=== PATIENT | male | born 1965 | race Two or more races ===

== ENCOUNTER 2021-02-01 00:36 | Day surgery (SDC) | payer OTHER, SELFPAY ==
[2021-02-01] VITALS (9 sets, daily range): BP systolic 111–153; BP diastolic 68–90; PULSE 86–97; RESP 16–18; TEMP 36.6; O2SAT 98–100; BMI 32.9
--- NOTE | ~2021-02-01 | CT_ITS ---
EXAMINATION: CT CHEST WITHOUT CONTRAST CLINICAL INFORMATION: Rule out foreign body in esophagus COMPARISON: None TECHNIQUE: Multidetector volumetric CT imaging of the chest was done. Axial MIP volume rendering provided. Sagittal and coronal reformatted images were obtained. This CT examination was performed using dose optimization techniques as appropriate, variously including the following: *Automated exposure control *Adjustment of mA and/or kV according to patient size (this includes techniques or standardized protocols for targeted exams where dose is matched to indication/reason for exam; i.e. extremities or head) *Use of iterative reconstruction technique DLP: 336 mGy-cm FINDINGS: LUNGS: No regions of consolidation. There is a 2 mm nodule in the left upper lobe on image [id number] which is suspected to be calcified. MEDIASTINUM: There is a somewhat disc shaped calcified foreign body in the esophagus at the level of T2 measuring approximately 3 cm in length which is oriented transversely. No pneumomediastinum is seen. There is suggestion of small hypodense thyroid nodules versus cysts. There are subcentimeter mediastinal lymph nodes within the range of normal variation. Cardiac size is within normal limits; no pericardial effusion. PLEURA: There is no pleural effusion. No pleural mass or thickening. AXILLA: No lymphadenopathy. UPPER ABDOMEN: Unremarkable. OSSEOUS STRUCTURES: Scattered degenerative endplate changes are noted in the spine. CT/CT chest wo con IMPRESSION: Foreign body within the esophagus at the level of T2 measuring approximately 3 cm in length. Appearance is suggestive of an ingested bone fragment. This critical result was discussed with Dr. Vee on 02/01/2021 4:40 AM, and it was ascertained that the content and urgency of the report was understood at the time of direct communication.
--- NOTE | 2021-02-01 01:10 | ED.GENADULT ---
HPI - General Adult General Chief complaint: General Medical Stated complaint: feels like food stuck in throat Time Seen by Provider: 02/01/21 00:48 Source: patient Mode of arrival: ambulatory Limitations: no limitations History of Present Illness HPI narrative: Patient comes emergency room complaining of a foreign body sensation in his throat. Patient states he ate chicken at 20:30. Patient did not choke, patient states that he is able to handle secretions, able to drink fluids but she only has pressure. Patient tried making himself vomit, the pressure did not relief. Patient denies diarrhea. No abdominal pain. Related Data Home Medications Medication Instructions Recorded Confirmed No Known Home Meds 02/01/21 02/01/21 Allergies Allergy/AdvReac Type Severity Reaction Status Date / Time No Known Allergies Allergy Verified 02/01/21 00:44 Review of Systems Review of Systems: Constitutional : No Weight loss, No Fever, No Chills, No Night Sweats, No Fatigue, No Malaise ENT/Mouth : No Hearing loss, No Ear Pain, No Nasal Congestion, No Sinus Pain, No Hoarseness, No sore throat, No Rhinorrhea, No Swallowing Difficulty Eyes: No Eye Pain, No Swelling, No Redness, No Foreign Body, No Discharge, No Vision Changes Cardiovascular : No Chest Pain, No SOB, No Dyspnea on Exertion, No Orthopnea, No Edema, No Palpitations Respiratory : No Cough, No Sputum, No Wheezing, No Smoke Exposure, No Dyspnea Gastrointestinal : No Nausea, 1 episode of self-induced Vomiting, No Diarrhea, No Constipation, No abdominal Pain, No Hematochezia, No Melena, foreign body sensation in the esophagus Genitourinary : no irregular bleeding, No Dysuria, No Urinary Frequency, No Hematuria, No Urinary Incontinence, No Urgency, No Flank Pain, No Urinary Flow Changes, No Hesitancy Musculoskeletal : No joint pain, No Myalgias, No Joint Swelling Skin : No Skin Lesions, No rash Neuro : No Weakness, No Numbness, No Paresthesias, No Loss of Consciousness, No Dizziness, No Headache Psych : No Anxiety/Panic, No Depression, No SI/HI/AH/VH, No Social Issues, Heme/Lymph: No Bruising, No Bleeding,No Lymphadenopathy Endocrine : No Polyuria, No Polydipsia, No Temperature Intolerance [facility] Social History Social History Patient Tobacco Use Status: Never used Tobacco Advance Directives: No Advance Directives Information Provided: No Physical Exam Vital Signs: Vital Signs: Last Vital Signs Temp 97.8 F 02/01/21 00:45 Pulse 97 02/01/21 04:00 Resp 16 02/01/21 06:00 BP 151/82 H 02/01/21 04:00 Pulse Ox 100 02/01/21 04:00 Body Mass Index 32.9 Appearance: Alert. Oriented X3. No acute distress. Eyes: Pupils equal, round and reactive to light. ENT: Pharynx normal. Neck: Normal inspection. Neck supple. No lymph nodes noted. No crepitus CVS: Normal heart rate and rhythm. Pulses normal. Normal S1 and S2 Respiratory: No respiratory distress. Breath sounds normal. No Wheezing. No rales Abdomen: Soft and nontender. No rigidity. No distention. good BS x4 Skin: Skin warm and dry. Normal skin color. Normal skin turgor. Extremities: No lower extremity edema. No Lacerations. No Rash Neuro: Oriented X 3. No motor deficit. No sensory deficit. Moving all extermities. No slurred speech. Course Course Course Narrative: CT scan shows a bone fragment in lodged in the esophagus at T2. I discussed the patient with Dr. Torres. Patient states that he feels well, no pain, patient will be scheduled for upper endoscopy this morning. Patient was taking to the OR at 07:00. It is likely that after the procedure patient will be returning to the ED for discharge. Sign out given to Dr. Walsh. Medical Decision Making Lab Data Result diagrams: 02/01/21 05:05 02/01/21 06:10 Labs: Lab Results 02/01/21 02/01/21 02/01/21 Range/Units 05:05 05:13 06:10 WBC 13.7 H (4.8-10.8) X10*3/uL RBC 5.49 (4.60-5.80) X10*6/uL Hgb 15.5 (14.0-18.0) g/dl Hct 47.9 (42-52) % MCV 87.2 (80-98) fL MCH 28.2 (27.0-33.0) pg MCHC 32.4 (31.0-36.0) g/dl RDW 12.7 (11.0-16.0) % Plt Count 371 (160-400) X10*3/uL MPV 9.7 (9.4-12.4) fL Immature Gran % (Auto) 0.3 (0.0-0.4) % Neut % (Auto) 78.8 H (45-73) % Lymph % (Auto) 12.9 L (20-40) % [place] % (Auto) 6.1 (2-11) % Eos % (Auto) 1.3 (0-4) % Baso % (Auto) 0.6 (0-2) % Lymph # (Auto) 1.8 (1.2-4.9) X10*3/uL [place] # (Auto) 0.8 (0.1-1.2) X10*3/uL Eos # (Auto) 0.2 (0.0-0.4) X10*3/uL Baso # (Auto) 0.1 (0.0-0.2) X10*3/uL Abs Immat Gran (auto) 0.04 H (0.00-0.03) X10*3/uL Absolute Neuts (auto) 10.8 H (2.0-8.3) X10*3/uL Absolute Nucleated RBC 0.000 (0.0-0.012) X10*3/uL Nucleated RBC % (auto) 0.0 (0.0-0.2) /100WBC PT 12.4 (9.9-13.0) SEC INR 1.1 (0.9-1.1) Sodium 141 (135-145) mmol/L Potassium 4.1 (3.3-5.1) mmol/L Chloride 107 (96-108) mmol/L Carbon Dioxide 27 (22-29) mmol/L Anion Gap 11 L (12-20) BUN 10 (9-16) mg/dL Creatinine 0.79 (0.5-1.4) mg/dL Estim Creat Clear Calc 109.8 Estimated GFR > 60 Random Glucose 105 (60-115) mg/dL Calcium 9.4 (8.4-10.2) mg/dL Total Bilirubin 0.4 (0.0-1.0) mg/dL Direct Bilirubin 0.2 (0.0-0.5) mg/dL AST 23 (5-37) U/L ALT 32 (0-40) U/L Alkaline Phosphatase 99 (39-117) U/L Total Protein 7.7 (6.5-8.0) g/dL Albumin 4.4 (3.5-5.0) g/dL COVID-19 ([facility]) (Negative) COVID-19 Clin Com 02/01/21 Range/Units 06:40 WBC (4.8-10.8) X10*3/uL RBC (4.60-5.80) X10*6/uL Hgb (14.0-18.0) g/dl Hct (42-52) % MCV (80-98) fL MCH (27.0-33.0) pg MCHC (31.0-36.0) g/dl RDW (11.0-16.0) % Plt Count (160-400) X10*3/uL MPV (9.4-12.4) fL Immature Gran % (Auto) (0.0-0.4) % Neut % (Auto) (45-73) % Lymph % (Auto) (20-40) % [place] % (Auto) (2-11) % Eos % (Auto) (0-4) % Baso % (Auto) (0-2) % Lymph # (Auto) (1.2-4.9) X10*3/uL [place] # (Auto) (0.1-1.2) X10*3/uL Eos # (Auto) (0.0-0.4) X10*3/uL Baso # (Auto) (0.0-0.2) X10*3/uL Abs Immat Gran (auto) (0.00-0.03) X10*3/uL Absolute Neuts (auto) (2.0-8.3) X10*3/uL Absolute Nucleated RBC (0.0-0.012) X10*3/uL Nucleated RBC % (auto) (0.0-0.2) /100WBC PT (9.9-13.0) SEC INR (0.9-1.1) Sodium (135-145) mmol/L Potassium (3.3-5.1) mmol/L Chloride (96-108) mmol/L Carbon Dioxide (22-29) mmol/L Anion Gap (12-20) BUN (9-16) mg/dL Creatinine (0.5-1.4) mg/dL Estim Creat Clear Calc Estimated GFR Random Glucose (60-115) mg/dL Calcium (8.4-10.2) mg/dL Total Bilirubin (0.0-1.0) mg/dL Direct Bilirubin (0.0-0.5) mg/dL AST (5-37) U/L ALT (0-40) U/L Alkaline Phosphatase (39-117) U/L Total Protein (6.5-8.0) g/dL Albumin (3.5-5.0) g/dL COVID-19 ([facility]) Negative (Negative) COVID-19 Clin Com See Note Discharge Plan Discharge Clinical Impression: Esophageal foreign body Qualifiers: Encounter type: initial encounter Qualified Code(s): T18.108A - Unspecified foreign body in esophagus causing other injury, initial encounter Patient Disposition: Home, Self-Care Instructions: Esophageal Foreign Body (ED) Additional Instructions: Please follow-up with your primary care physician tomorrow. If you have any worsening or new symptoms, please return to the emergency room or call 911 Prescriptions: No Action No Known Home Meds RF: 0
--- NOTE | 2021-02-01 04:04 | PC.NURSE ---
NO CHANGE IN PHYSICAL ASSESSMENT, PT CONTINUES TO MANAGE OWN SECRETIONS, SPEAK FULL SENTENCES, REPORTING CONTINUED PAIN UPON SWALLOWING. CT ORDERED, PT AWARE OF PLAN OF CARE.
--- NOTE | 2021-02-01 04:55 | ECG_ITS ---
Test Reason : ENDOSCOPY Blood Pressure : / mmHG Vent. Rate : 095 BPM Atrial Rate : 095 BPM P-R Int : 160 ms QRS Dur : 096 ms QT Int : 344 ms P-R-T Axes : -05 -29 017 degrees QTc Int : 432 ms Normal sinus rhythm Normal ECG No previous ECGs available Referred By: Anna Vee Electronically Signed By:RYAN GUNDERSON MD
--- NOTE | 2021-02-01 05:08 | PC.NURSE ---
IV ACCESS OBTAINED, LABS DRAWN AND SENT FOR PROCESSING. NO CHANGE IN PHYSICAL ASSESSMENT. PT NPO FOR ENDOSCOPY PROCEDURE IN AM TO REMOVE ?CHICKEN BONE FROM ESOPHAGUS. AWARE OF PLAN OF CARE, WILL CONTINUE TO MONITOR.
[2021-02-01 05:20] LABS: MANUAL DIFF FLAG NO
[2021-02-01 05:21] LABS: Basophils Absolute Auto 0.1 X10*3/uL (0.0-0.2); Basophils Percent Auto 0.6 % (0-2); Eosinophils Absolute Auto 0.2 X10*3/uL (0.0-0.4); Eosinophils Percent Auto 1.3 % (0-4); Hematocrit 47.9 % (42-52); Hemoglobin 15.5 g/dl (14.0-18.0); Imm Gran Abs Auto 0.04 X10*3/uL (0.00-0.03); Imm Gran Pct Auto 0.3 % (0.0-0.4); Lymphocytes Absolute Auto 1.8 X10*3/uL (1.2-4.9); Lymphocytes Percent Auto 12.9 % (20-40); Mean Corpuscular HGB Conc 32.4 g/dl (31.0-36.0); Mean Corpuscular Hemoglobin 28.2 pg (27.0-33.0); Mean Corpuscular Volume 87.2 fL (80-98); Mean Platelet Volume 9.7 fL (9.4-12.4); Monocytes Absolute Auto 0.8 X10*3/uL (0.1-1.2); Monocytes Percent Auto 6.1 % (2-11); Neutrophils Absolute Auto 10.8 X10*3/uL (2.0-8.3); Neutrophils Percent Auto 78.8 % (45-73); Platelet Count 371 X10*3/uL (160-400); Red Blood Count 5.49 X10*6/uL (4.60-5.80); Red Cell Distribution Width 12.7 % (11.0-16.0); White Blood Count 13.7 X10*3/uL (4.8-10.8)
[2021-02-01 05:27] LABS: INTERNATIONAL NORM RATIO 1.1 (0.9-1.1); Prothrombin Time 12.4 SEC (9.9-13.0)
[2021-02-01 06:40] LABS: Alanine Aminotransferase 32 U/L (0-40); Albumin Level 4.4 g/dL (3.5-5.0); Alkaline Phosphatase 99 U/L (39-117); Anion Gap 11 (12-20); Aspartate Amino Transferase 23 U/L (5-37); Bilirubin Direct 0.2 mg/dL (0.0-0.5); Bilirubin Total 0.4 mg/dL (0.0-1.0); Blood Urea Nitrogen 10 mg/dL (9-16); Calcium 9.4 mg/dL (8.4-10.2); Carbon Dioxide 27 mmol/L (22-29); Chloride 107 mmol/L (96-108); Creatinine Clr Calc Pharmacy 109.8; Estimated Glomerular Filt Rate > 60; Glucose Random 105 mg/dL (60-115); Potassium 4.1 mmol/L (3.3-5.1); Sodium 141 mmol/L (135-145); Total Protein 7.7 g/dL (6.5-8.0)
--- NOTE | 2021-02-01 06:43 | HO.ANESPROP2 ---
[facility] Social History Social History Patient Tobacco Use Status: Never used Tobacco Advance Directives: No Advance Directives Information Provided: No Meds Allergies Allergy/AdvReac Type Severity Reaction Status Date / Time No Known Allergies Allergy Verified 02/01/21 00:44 Home Medications Medication Instructions Recorded Confirmed Last Taken Type No Known Home Meds 02/01/21 02/01/21 Unknown History Exam Exam Date and Time: February 01, 2021 0643 Height,Weight and Vital Signs: Height 5 ft 6 in Weight 92.575 kg Last Vital Signs Temp 97.8 F 02/01/21 00:45 Pulse 97 02/01/21 04:00 Resp 16 02/01/21 06:00 BP 151/82 H 02/01/21 04:00 Pulse Ox 100 02/01/21 04:00 Pertinent Lab Results Pertinent Lab Results: Laboratory Tests 02/01/21 02/01/21 02/01/21 05:05 05:13 06:10 WBC 13.7 H RBC 5.49 Hgb 15.5 Hct 47.9 MCV 87.2 MCH 28.2 MCHC 32.4 RDW 12.7 Plt Count 371 MPV 9.7 Immature Gran % (Auto) 0.3 Neut % (Auto) 78.8 H Lymph % (Auto) 12.9 L [place] % (Auto) 6.1 Eos % (Auto) 1.3 Baso % (Auto) 0.6 Lymph # (Auto) 1.8 [place] # (Auto) 0.8 Eos # (Auto) 0.2 Baso # (Auto) 0.1 Abs Immat Gran (auto) 0.04 H Absolute Neuts (auto) 10.8 H Absolute Nucleated RBC 0.000 Nucleated RBC % (auto) 0.0 PT 12.4 INR 1.1 Sodium 141 Potassium 4.1 Chloride 107 Carbon Dioxide 27 Anion Gap 11 L BUN 10 Creatinine 0.79 Estim Creat Clear Calc 109.8 Estimated GFR > 60 Random Glucose 105 Calcium 9.4 Total Bilirubin 0.4 Direct Bilirubin 0.2 AST 23 ALT 32 Alkaline Phosphatase 99 Total Protein 7.7 Albumin 4.4 Airway Mallampati Class: II TM Dist: >3cm Neck ROM: Full
--- NOTE | 2021-02-01 06:49 | P.CNGI_ITS ---
Assessment and Plan (1) Esophageal foreign body: Status: Acute (2) Odynophagia: Status: Acute 55-year-old male presented with odynophagia and pain after an episode of food bolus impaction last night. Pt was able to regurgitate the food bolus. Chest CT scan shows a 3 cm chicken bone lodged transversely in the esophagus. RECOMMENDATIONS: Proceed with uregnt upper endoscopy for foreign body removal. Procedure and potential complications including bleeding, perforation, drug reaction and aspiration were reviewed with the patient and his . History of Present Illness Data of Consult Service Date: 02/01/21 Requesting physician: Anna Vee Primary Care Provider: Steven Turner MD HPI Reason for consult: odynophagia, esophageal foreign body 55-year-old male presented to [facility] [place] ED early this morning with odynophagia and foreign body sensation in his throat: HPI narrative: Patient comes emergency room complaining of a foreign body sensation in his throat. Patient states he ate chicken at 20:30. Patient did not choke, patient states that he is able to handle secretions, able to drink fluids but she only has pressure. Patient tried making himself vomit, the pressure did not relief. Patient denies diarrhea. No abdominal pain IMAGING STUDIES: CHEST CT SCAN SHOWED: Foreign body within the esophagus at the level of T2 measuring approximately 3 cm in length. Appearance is suggestive of an ingested bone fragment. Patient was eating dinner (chicken) at 20:30 last night and food bolus got stuck. He induced vomiting with his finger and was able to regurgitate the food. Since then he notes pain in the esophagus. He is able to manage his secretions and drink fluids without difficulty. Patient denies symptoms of heartburn, past problems with dysphagia, nausea, vomiting, change in appetite or weight. Denies recent change in bowel habits, constipation, diarrhea, black stools or rectal bleeding. Patient denies major cardiac or pulmonary problems, loud snoring or sleep apnea Denies being on chronic anticoagulation. 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 Patient denies known family history of colon polyps, colon cancer. Review of Systems Constitutional: Constitutional: Denies fever(s), Denies headache(s) and Denies weight loss Eyes: Eyes: Denies eye discharge and Denies irritation ENT: Reports Normal hearing present, Reports dysphagia (Odynophagia and pain), Denies dizziness and Denies headache(s) Cardiovascular: Cardiovascular: Denies chest pain, Denies leg edema and Denies dyspnea on exertion Respiratory: Respiratory: Denies cough, Denies dyspnea on exertion and Denies wheezing Gastrointestinal: Gastrointestinal: Denies abdominal pain, Denies change in bowel habits, Reports dysphagia (Odynophagia and pain) and Denies heartburn Genitourinary: Genitourinary: Denies dysuria Musculoskeletal: Musculoskeletal: Denies back pain and Denies arthralgias Integumentary/Breasts: Skin/Breast: Denies pruritus, Denies rash and Denies jaundice Neurologic: Reports Normal hearing present, Denies Abnormal speech present, Denies dizziness, Denies headache(s) and Denies seizure-like activity Psychiatric: Psychiatric: Denies anxiety, Denies depression and Denies panic attacks Endocrine: Endocrine: Denies cold intolerance, Denies flushing and Denies heat intolerance Hematologic/Lymphatic: Hematologic/Lymphatic: Denies easy bleeding and Denies easy bruising Allergic/Immunologic: Allergic/Immunologic: Denies wheezing PMFSH Social History Social History Patient Tobacco Use Status: Never used Tobacco Advance Directives: No Advance Directives Information Provided: No Meds Allergies Allergy/AdvReac Type Severity Reaction Status Date / Time No Known Allergies Allergy Verified 02/01/21 00:44 Active Medications: Current Medications Generic Name Dose Route Start Last Admin Trade Name Freq PRN Reason Stop Dose Admin Lactated Ringer's 1,000 mls @ 100 mls/hr 02/01/21 06:45 Lr IVCONT .Q10H CHELO Ondansetron HCl 4 mg 02/01/21 06:44 Ondansetron Hcl 4 Mg/2 Ml Vial IVPUSH ONCE PRN Nausea and Vomiting Physical Exam Vital Signs: Vital Signs: Last Vital Signs Temp 97.8 F 02/01/21 00:45 Pulse 97 02/01/21 04:00 Resp 16 02/01/21 06:00 BP 151/82 H 02/01/21 04:00 Pulse Ox 100 02/01/21 04:00 Body Mass Index 32.9 Const: General: healthy appearing and no acute distress Nutritional Appearance: average body habitus Orientation/consciousness: patient oriented x3 Limitations: no limitations HENMT: Head: Yes normal to inspection Ears: hearing grossly normal bilaterally Mouth: Normal oral and palatal mucosa present Eyes: Sclerae: sclerae normal Pupils: Equal, round and reactive pupils present Neck: Neck: Yes normal visual inspection Chest: Chest palpation & inspection: normal inspection of the chest Resp: Effort & Inspection: normal respiratory effort Auscultation: clear to auscultation bilaterally Cardio: Palpation: normal PMI Rate: regular rate Rhythm: regular rhythm Heart sounds: S1 normal heart sound present, S2 normal heart sound present and no murmurs GI: Palpation (GI): Soft to palpation, nontender and No hepatosplenomegaly present Auscultation: normal bowel sounds Rectal Exam - Male: Yes deferred Skin: General skin exam: no rashes or lesions noted Neuro: General: patient oriented x3, gait normal and moves all extremities Cranial nerves: Yes Equal, round and reactive pupils present and Yes Normal hearing present Speech: No Abnormal speech present Psych: Appearance: grossly normal Mental Status: mental status grossly normal Results Labs CBC & Chem 7: 02/01/21 05:05 02/01/21 06:10 Labs: Short CBC 02/01/21 Range/Units 05:05 WBC 13.7 H (4.8-10.8) X10*3/uL Hgb 15.5 (14.0-18.0) g/dl Hct 47.9 (42-52) % Plt Count 371 (160-400) X10*3/uL BMP 02/01/21 06:10 Sodium 141 Potassium 4.1 Chloride 107 Carbon Dioxide 27 BUN 10 Creatinine 0.79 Calcium 9.4 Liver Function 02/01/21 Range/Units 06:10 Total Bilirubin 0.4 (0.0-1.0) mg/dL Direct Bilirubin 0.2 (0.0-0.5) mg/dL AST 23 (5-37) U/L ALT 32 (0-40) U/L Alkaline Phosphatase 99 (39-117) U/L Albumin 4.4 (3.5-5.0) g/dL Procedures Date of Service Date of Service: 02/01/21
[2021-02-01 07:00] LABS: COVID-19 Test Negative (Negative)
--- NOTE | 2021-02-01 07:06 | P.BOP_ITS ---
Brief Operative Note Date of Service: 02/01/21 Pre-op diagnosis: Esophageal foreign body Post-op diagnosis: other (possible esophageal motility disorder, no foriegn body seen) Procedure: FLEXIBLE TRANSORAL UPPER GASTROINTESTINAL ENDOSCOPY Consent: Indications for the procedure and potential complications of bleeding, perforation, reaction to medications and missed diagnosis were discussed with the patient and informed consent was obtained. Instrument: Olympus GIF H 190 mid size upper endoscope Monitoring: Vital signs and clinical assessment, continuous EKG monitoring, Pulse oximetry, Carbon Dioxide monitoring and blood pressure monitoring were done throughout the procedure. Procedure: The patient was placed in the left lateral decubitis position and pre-procedure medications were administered and a bite block was placed. The endoscope was inserted into the mouth and advanced under direct vision to the third part of duodenum. A careful inspection was made as the upper endoscope was withdrawn including a retroflexed examination of the proximal stomach; Findings and interventions are described below. Findings: Larynx: ET tube in place Esophagus: Tortuous esophagus with increased tertiary contractions without stricture or foreign body. 1-2 cms linear ulcers noted in the upper esophagus just distal to the cricopharyngeal sphincter. GE junction at 40 cms.. No esophagitis. Stomach: Gastric mucosa appeared normal. Grade 2 flap valve on retroflexed examination of the cardia. Duodenum: Normal bulb and descending duodenum Intervention: None needed Impression and Post Procedure Diagnosis: Endoscopy Findings: LARYNX: ET tube in place ESOPHAGUS: Tortuous esophagus with increased tertiary contractions without stric ture, ring or foreign body. Two 1-2 cms linear ulcers noted in the upper esophagus just distal to the cricopharyngeal sphincter - likely excoriation due to passage of chicken bone. No foreign body visualized in the upper GI tract - likely passed spontaneously into the small intestine. Plan: Ok to discharge home on PO PPI x 2 weeks. Pt advised to take soft foods, chew his food well and take it with sips of fluids (has difficulty chewing since he has no teeth and waiting to get his dentures) Followup prn in GI if he notes problems with recurrent dysphagia Above findings were reviewed with the patient and his . Surgeon: Triston Torres MD Anesthesia: MAC (Dr Costa) Was an Secretary Receptionist used for this Procedure?: No Estimated blood loss (mL): 0 Pathology: none sent Condition: stable Disposition: PACU
--- NOTE | 2021-02-02 16:41 | P.OP_ITS ---
Operative Note Operative Note Date of Service: 02/01/21 Narrative: Pre-op diagnosis: Esophageal foreign body Post-op diagnosis: other (possible esophageal motility disorder, no foriegn body seen) Procedure: FLEXIBLE TRANSORAL UPPER GASTROINTESTINAL ENDOSCOPY Consent: Indications for the procedure and potential complications of bleeding, perforation, reaction to medications and missed diagnosis were discussed with the patient and informed consent was obtained. Instrument: Olympus GIF H 190 mid size upper endoscope Monitoring: Vital signs and clinical assessment, continuous EKG monitoring, Pulse oximetry, Carbon Dioxide monitoring and blood pressure monitoring were done throughout the procedure. Procedure: The patient was placed in the left lateral decubitis position and pre-procedure medications were administered and a bite block was placed. The endoscope was inserted into the mouth and advanced under direct vision to the third part of duodenum. A careful inspection was made as the upper endoscope was withdrawn including a retroflexed examination of the proximal stomach; Findings and interventions are described below. Findings: Larynx: ET tube in place Esophagus: Tortuous esophagus with increased tertiary contractions without stricture or foreign body. 1-2 cms linear ulcers noted in the upper esophagus just distal to the cricopharyngeal sphincter. GE junction at 40 cms.. No esophagitis. Stomach: Gastric mucosa appeared normal. Grade 2 flap valve on retroflexed examination of the cardia. Duodenum: Normal bulb and descending duodenum Intervention: None needed Impression and Post Procedure Diagnosis: Endoscopy Findings: LARYNX: ET tube in place ESOPHAGUS: Tortuous esophagus with increased tertiary contractions without stricture, ring or foreign body. Two 1-2 cms linear ulcers noted in the upper esophagus just distal to the cricopharyngeal sphincter - likely excoriation due to passage of chicken bone. No foreign body visualized in the upper GI tract - likely passed spontaneously into the small intestine. Plan: Ok to discharge home on PO PPI x 2 weeks. Pt advised to take soft foods, chew his food well and take it with sips of fluids (has difficulty chewing since he has no teeth and waiting to get his dentures) Followup prn in GI if he notes problems with recurrent dysphagia Above findings were reviewed with the patient and his . Surgeon: Triston Torres MD Anesthesia: MAC (Dr Costa) Was an Powder Mill Operator used for this Procedure?: No Pathology: none sent Condition: stable Disposition: PACU
== END 2021-02-01 08:45 | disposition home or self-care (01) ==
LOC: HO.ED 07:29 → HO.SSS 08:04
PROVIDERS: Emergency Provider Emergency Medicine; PCP Family Medicine; Visit Provider Internal Medicine Gastroenterology
PROC: 0DJ08ZZ Inspection of Upper Intestinal Tract, Via Natural or Artificial Opening Endoscopic (ICD-10-PCS; CPT 43235; principal; 2021-02-01 06:30)
DX: T18.128A Food in esophagus causing other injury, initial encounter (principal); K22.10 Ulcer of esophagus without bleeding; X58.XXXA Exposure to other specified factors, initial encounter; Y93.9 Activity, unspecified; Y92.9 Unspecified place or not applicable; Y99.9 Unspecified external cause status; Z97.8 Presence of other specified devices; Z20.822 Contact with and (suspected) exposure to COVID-19
CPT/HCPCS: 43235; 36415; 71250; 80048; 80076; 85025; 85610; 87635; 93005; 96372; 99285; J0330; J1100; J1610; J1885; J2250; J2405; J3010

== ENCOUNTER 2024-01-06 00:41 | Emergency (ER) | payer OTHER, SELFPAY ==
--- NOTE | ~2024-01-06 | XR_ITS ---
EXAMINATION: XR CHEST CLINICAL INFORMATION: Chest pain COMPARISON: None available. TECHNIQUE: Frontal upright portable view of the chest was obtained in the lordotic projection. FINDINGS: No significant abnormality is noted involving the heart, lungs, mediastinum, bony thorax or soft tissues. XR/XR chest 1V IMPRESSION: Unremarkable examination.
--- NOTE | 2024-01-06 00:42 | ECG_ITS ---
Test Reason : CHEST PAIN Blood Pressure : / mmHG Vent. Rate : 099 BPM Atrial Rate : 099 BPM P-R Int : 150 ms QRS Dur : 096 ms QT Int : 324 ms P-R-T Axes : -10 -30 009 degrees QTc Int : 415 ms Normal sinus rhythm Left axis deviation Moderate voltage criteria for LVH, may be normal variant ( R in aVL , [place] product ) Abnormal ECG When compared with ECG of 01-FEB-2021 05:07, No significant change was found Referred By: Generic ED Physician Electronically Signed By:RYAN GUNDERSON MD
[2024-01-06 00:47] VITALS: BMI 26.6
[2024-01-06 00:57] LABS: MANUAL DIFF FLAG NO
[2024-01-06 00:58] LABS: Basophils Absolute Auto 0.1 X10*3/uL (0.0-0.2); Basophils Percent Auto 0.7 % (0-2); Eosinophils Absolute Auto 0.3 X10*3/uL (0.0-0.4); Eosinophils Percent Auto 2.2 % (0-4); Hematocrit 48.4 % (42.0-52.0); Hemoglobin 16.2 g/dl (14.0-18.0); Imm Gran Abs Auto 0.03 X10*3/uL (0.00-0.03); Imm Gran Pct Auto 0.3 % (0.0-0.4); Lymphocytes Absolute Auto 2.1 X10*3/uL (1.2-4.9); Lymphocytes Percent Auto 18.8 % (20-40); Mean Corpuscular HGB Conc 33.5 g/dl (31.0-36.0); Mean Corpuscular Hemoglobin 28.2 pg (27.0-33.0); Mean Corpuscular Volume 84.3 fL (80.0-98.0); Mean Platelet Volume 9.1 fL (9.4-12.4); Monocytes Percent Auto 9.1 % (2-11); Neutrophils Absolute Auto 7.8 x10*3/uL (2.0-8.3); Neutrophils Percent Auto 68.9 % (45-73); Platelet Count 395 X10*3/uL (160-400); Red Blood Count 5.74 X10*6/uL (4.60-5.80); Red Cell Distribution Width 13.2 % (11.0-16.0); White Blood Count 11.2 X10*3/uL (4.8-10.8)
[2024-01-06 06:05] LABS: Anion Gap 13 (12-20); Blood Urea Nitrogen 13 mg/dL (9-16); Calcium 9.8 mg/dL (8.4-10.2); Carbon Dioxide 27 mmol/L (22-29); Chloride 106 mmol/L (96-108); Creatinine Clr Calc Pharmacy 73.8; Estimated Glomerular Filt Rate > 60; Glucose Random 110 mg/dL (60-115); Potassium 3.8 mmol/L (3.3-5.1); Sodium 142 mmol/L (135-145); Troponin-I High Sensitivity 3.2 ng/L (<3.5-35.0)
--- NOTE | 2024-01-06 06:06 | PC.NURSE ---
Please see paper chart
[2024-01-06 06:07] VITALS: BP 1/1; PULSE 0; RESP 0; TEMP -17.7; TEMP 0; O2SAT 0
== END 2024-01-06 06:10 | disposition home or self-care (01) ==
PROVIDERS: Emergency Provider Emergency Medicine; PCP Family Medicine
DX: R07.9 Chest pain, unspecified (principal)
CPT/HCPCS: 36415; 71045; 80048; 84484; 85025; 93005; 99283; 99284

== ENCOUNTER → 2024-01-06 00:42 | Outpatient (BNV) | payer OTHER, SELFPAY | PROVIDERS: Emergency Provider Emergency Medicine; PCP Family Medicine; Visit Provider Internal Medicine Cardiovascular Disease | DX: R94.31 Abnormal electrocardiogram [ECG] [EKG] (principal) | CPT/HCPCS: 93010 ==

== ENCOUNTER 2024-06-06 10:40 | Outpatient (RCR) | payer OTHER, SELFPAY | END 2024-07-04 12:16 | disposition home or self-care (01) | LOC: HO.PT 10:40 | PROVIDERS: PCP Nurse Practitioner Family; Visit Provider Nurse Practitioner Family | DX: M54.6 Pain in thoracic spine (principal) ==

== ENCOUNTER 2024-07-03 09:15 | Outpatient (RCR) | payer OTHER, SELFPAY | END 2024-07-17 07:54 | disposition home or self-care (01) | LOC: HO.PT 09:15 | PROVIDERS: PCP Nurse Practitioner Family; Visit Provider Nurse Practitioner Family | DX: M54.6 Pain in thoracic spine (principal) | CPT/HCPCS: 97110; 97140; 97161 ==